=== PATIENT | female | born 1980 | race Caucasian/White ===

== ENCOUNTER 2016-11-19 16:27 | Emergency (ER) | payer MEDICAID ==
--- NOTE | 2016-11-19 17:42 | EDPHY ---
H & P Smoking Status: Never smoked Time Seen by Provider: 11/19/16 16:49 HPI/ROS: CHIEF COMPLAINT: Left shoulder pain HISTORY OF PRESENT ILLNESS: 36-year-old female presents to the emergency department with left shoulder pain. The patient is concerned that she has possible dislocation. She went to [facility] and she was sent to the emergency department for evaluation for possible dislocated shoulder. She states this has been ongoing for last few weeks and now getting worse. Had she has pain with certain range of motion. She denies hitting her head or losing consciousness. Denies any known trauma or injury. Denies chest pain or difficulty breathing. Denies abdominal pain. She does complain of low back spasms. She denies radicular symptoms in her lower legs. She denies numbness or tingling in her fingers. Denies headache. REVIEW OF SYSTEMS: Constitutional: No fever, no chills. Eyes: No double or blurry vision. ENT: No sore throat. Respiratory: No cough, no shortness of breath. Cardiac: No chest pain. Gastrointestinal: No abdominal pain, vomiting or diarrhea. Genitourinary: No dysuria. Musculoskeletal: No neck or back pain. Skin: No rashes. Neurological: No headache. (Bina Arenas) Past Medical/Surgical History: Abdi-Danlos syndrome (Bina Arenas) Social History: Single. [facility] (Bina Arenas) Physical Exam: General Appearance: Alert, no distress. Hyperverbal. No apparent distress otherwise. Eyes: Pupils equal and round. Extraocular motions are all intact. ENT: Mouth: Mucous membranes moist. Respiratory: No wheezing, rhonchi, or rales, lungs are clear to auscultation. Cardiovascular: Regular rate and rhythm. Gastrointestinal: Abdomen is soft and nontender, no masses, no rebound or guarding, bowel sounds normal. Neurological: Alert and oriented x 3, cranial nerves II through XII grossly intact Skin: Warm and dry, no rashes. Musculoskeletal: Nontender to palpate along the cervical, thoracic or lumbar spine. Neck is supple. Extremities: She has full internal rotation of the left shoulder. Full external rotation of the left shoulder as well. Limited abduction secondary to pain. Full range of motion of the left elbow and left wrist. No obvious palpable bony deformity noted to the left shoulder. Minimally tender to palpate over the left anterior shoulder. Psychiatric: Patient is oriented X 3, there is no agitation. (Bina Arenas) Constitutional: Initial Vital Signs Temperature (C) 36.9 C 11/19/16 16:41 Heart Rate 104 H 11/19/16 16:41 Respiratory Rate 18 11/19/16 16:41 Blood Pressure 128/89 H 11/19/16 16:41 O2 Sat (%) 90 L 11/19/16 16:41 O2 Delivery Mode Room Air Allergies/Adverse Reactions: sulfamethoxazole [From Septra] Allergy (Verified 11/19/16 16:47) trimethoprim [From Septra] Allergy (Verified 11/19/16 16:47) Medical Decision Making - Diagnostics Imaging: X-rays of the left shoulder reveal no fracture or evidence of dislocation. This is reviewed by myself the PAC system as well as by the radiologist. (Bina Arenas) Procedures: The patient was placed in a sling for comfort and support and examined post application in good placement with normal PEDIATRIC PSYCHIATRIST. (Bina Arenas) ED Course/Re-evaluation: 36-year-old female presents to the emergency department complaining of ongoing left shoulder pain. She is concerned that she has possible dislocation. She has had previous subluxations. Examination the patient is no holding her left arm for comfort. She has limited range of motion although when she was positioning herself in bed she was pushing off of both her left and her right hand to try to lift herself up and scooter herself back in bed. She did not seem to have any problem without. Clinically I doubt this patient has a dislocated left humeral head. There is no obvious deformity or palpable crepitus. (Bina Arenas) I did not see this patient while she was in the emergency department. However her care was discussed with the PA while the patient was in the department. I agree with treatment plan and management (Jacob Heller) Differential Diagnosis: Including but not limited to the chronic pain, subluxation, dislocation, contusion, sprain, fracture (Bina Arenas) Departure - Departure Disposition: Home, Routine, Self-Care Clinical Impression: Chronic left shoulder pain Condition: Good Instructions: Shoulder Pain (ED) Additional Instructions: Tylenol 500-1000mg every 6 hours as needed for pain. Sling for comfort and support. Follow up with orthopedic surgeon next week to recheck. Do not lift anything with your left hand. You should not be pushing on a again since anything with resistance with the left upper extremity. Referrals: Peyman Lopez MD [Medical Doctor] - 2-3 days without fail (Orthopedic surgeon on-call)
[2016-11-19 18:13] VITALS: BP 145/95; PULSE 92; RESP 20; TEMP 98.1; O2SAT 96
== END 2016-11-19 18:20 | disposition home or self-care (01) ==
LOC: EEVIPCON 16:27
DX: M25.512 Pain in left shoulder (principal); G89.29 Other chronic pain
CPT/HCPCS: A4565